=== PATIENT | male | born 1945 | race Caucasian/White ===

== ENCOUNTER 2024-01-23 16:01 | Emergency (ER) | payer MEDICARE, OTHER ==
[~2024-01-23] VITALS: Ht 170.2 cm; Wt 63.5 kg
[2024-01-23] MEDS ORDERED: CHOL200059 PO (16:15)
[2024-01-23] MEDS ORDERED: BUME1TAB9 PO (16:15)
[2024-01-23] MEDS ORDERED: APIX5TAB PO (16:15)
[2024-01-23] MEDS ORDERED: FERR325T24 PO (16:15)
[2024-01-23] MEDS ORDERED: RISP0.2515 PO (16:15)
[2024-01-23] MEDS ORDERED: SACU1TAB PO (16:15)
[2024-01-23] MEDS ORDERED: VENL75CA62 PO (16:15)
[2024-01-23] MEDS ORDERED: ATOR40TA (16:15)
[2024-01-23] MEDS ORDERED: TAMS-3 PO (16:15)
[2024-01-23] MEDS ORDERED: CARV6.252 PO (16:15)
[2024-01-23] MEDS ORDERED: AZEL6DRO5 EACHEYE (16:15)
[2024-01-23] MEDS ORDERED: LORA0.5T48 PO (16:15)
[2024-01-23] MEDS ORDERED: DAPA10TA PO (16:15)
[2024-01-23] MEDS ORDERED: LEVO137T24 PO (16:15)
[2024-01-23] MEDS ORDERED: FAMO20TA29 (16:15)
[2024-01-23 16:47] LABS: BASOPHILS % (AUTO) 0.5 % (0.0-2.0); DIFFERENTIAL COMMENT 1; EOSINOPHILS # (AUTO) 0.3 K/uL (0.0-0.7); EOSINOPHILS % (AUTO) 3.5 % (0.0-7.0); HEMATOCRIT 38.3 % (36.7-47.1); HEMOGLOBIN 12.8 g/dL (12.5-16.3); LYMPHOCYTES # (AUTO) 1.7 K/uL (0.8-4.8); LYMPHOCYTES % (AUTO) 18.3 % (20.5-51.5); MEAN CORPUSCULAR HEMOGLOBIN 32.3 uug (23.8-33.4); MEAN CORPUSCULAR HGB CONC 33 g/dL (32.5-36.3); MEAN CORPUSCULAR VOLUME 96.9 fL (73.0-96.2); MONOCYTES # (AUTO) 0.7 K/uL (0.1-1.30); MONOCYTES % (AUTO) 7.6 % (0.0-11.0); NEUTROPHILS # (AUTO) 6.4 K/uL (1.8-8.9); NEUTROPHILS % (AUTO) 70.1 % (38.5-71.5); PLATELET COUNT (AUTO) 190 K/uL (152-348); RED BLOOD CELL COUNT(AUTO) 3.95 MIL/uL (4.06-5.63); RED CELL DISTRIBUTION WIDTH 14.2 % (12.1-16.2); WHITE BLOOD COUNT (AUTO) 9.1 K/uL (3.6-10.2)
[2024-01-23 16:53] LABS: CALCIUM 9.3 mg/dL (8.5-10.1); CARBON DIOXIDE 30 mmol/L (21-32); CHLORIDE 93 mmol/L (98-107); CREATININE 1.1 mg/dL (0.6-1.3); GLUCOSE 128 mg/dL (74-106); SODIUM SERUM 131 mmol/L (136-145); UREA NITROGEN, BLOOD 19 mg/dL (7-18)
[2024-01-23 16:59] LABS: ALANINE AMINOTRANSFERASE 23 U/L (16-63); ALBUMIN 4.1 g/dL (3.4-5.0); ALKALINE PHOSPHATASE 109 U/L (50-136); ASPARTATE AMINOTRANSFERASE 12 U/L (15-37); BILIRUBIN,TOTAL 0.6 mg/dL (0.2-1.0); MAGNESIUM 2.1 mg/dL (1.8-2.4); TOTAL PROTEIN, SERUM 7.1 g/dL (6.4-8.2)
[2024-01-23] MEDS: IV NS 1000 ML 1,000 ML IV ONE (17:04)
[2024-01-23 17:15] LABS: *BILIRUBIN,URIN NEGATIVE (NEGATIVE); *CLARITY,URINE CLEAR (CLEAR); *COLOR,URINE YELLOW (YELLOW); *KETONES,URINE NEGATIVE (NEGATIVE); *PROTEIN,URINE NEGATIVE (NEGATIVE); *UROBILINOGEN,URINE 0.2 E.U./dl (NORMAL); LEUKOCYTE ESTERASE ,URINE NEGATIVE (NEGATIVE); NITRITE, URINE NEGATIVE (NEGATIVE); UGLUCOSE 1+ (NEGATIVE)
[2024-01-23 17:17] LABS: *BLOOD, URINE TRACE (NEGATIVE)
[2024-01-23 17:22] LABS: *SODIUM RNDM,URINE 81 mmol/L (40-220)
[2024-01-23 17:31] LABS: RBC,URINE NONE SEEN /HPF (0-3)
[2024-01-23 17:32] LABS: BACTERIA,URINE NONE SEEN /HPF (NONE SEEN); SQUAMOUS EPITHELIAL CELL,UR FEW /HPF (NONE SEEN); WBC,URINE 0-3 /HPF (0-3)
[2024-01-23 17:59] LABS: ACETAMINOPHEN < 2.0 ug/mL (10-30)
[2024-01-23 18:04] LABS: ETHANOL < 3 MG/DL (0-10)
[2024-01-23 18:11] LABS: *AMPHETAMINE, URINE NEGATIVE (NEGATIVE); *BARBITURATE, URINE NEGATIVE (NEGATIVE); *BENZODIAZEPINE, URINE NEGATIVE (NEGATIVE); *CANNABINOID, URINE NEGATIVE (NEGATIVE); *COCCAINE, URINE NEGATIVE (NEGATIVE); *OPIATE, URINE NEGATIVE (NEGATIVE); *PHENCYCLIDINE SCREEN,URINE NEGATIVE (NEGATIVE); FENTANYL, URINE NEGATIVE (NEGATIVE)
[2024-01-23 21:56] VITALS: BP 110/60; TEMP 98.6; O2SAT 99
== END 2024-01-23 21:57 | disposition home or self-care (01) ==
LOC: ER 16:04
DX: F22 Delusional disorders (principal); E11.9 Type 2 diabetes mellitus without complications; Z79.899 Other long term (current) drug therapy; Z20.822 Contact with and (suspected) exposure to COVID-19
CPT/HCPCS: 36415; 83735; 84300; 85025; A4606; A4663; G0480; J7040